=== PATIENT | female | born 1945 | race African-American/Black ===

== ENCOUNTER 2019-02-10 14:42 | Emergency (ER) | payer MEDICARE, BC ==
[~2019-02-10] VITALS: Ht 162.6 cm; Wt 96.0 kg
[2019-02-10] MEDS ORDERED: ACETAMINOPHEN WITH CODEINE 300/30MG TABLET PO ONE (17:15)
[2019-02-10 17:28] VITALS: BP 137/60
[2019-02-10 18:04] LABS: BASOPHILS % 0.8 % (0.0-2.0); EOSINOPHILS % 2.7 % (0.0-5.0); HEMATOCRIT. 39.4 % (36.0-48.0); LYMPHOCYTES % 41.1 % (20.0-50.0); MEAN CORPUSCULAR HEMOGLOBIN 29.8 pg (28.0-32.0); MEAN CORPUSCULAR VOLUME 90.6 fL (81.0-99.0); MEAN PLATELET VOLUME 7.4 fl (7.4-10.4); MONOCYTES % 8.6 % (2.0-8.0); NEUTROPHILS % 46.8 % (40.0-76.0); PLATELET 194 x1000/uL (130-400); RED BLOOD CELL COUNT 4.35 mill/uL (4.2-5.4); RED CELL DISTRIBUTION WIDTH 13.8 % (11.6-14.6)
[2019-02-10 18:09] LABS: CHLORIDE 108 mEq/L (98-107)
[2019-02-10 18:18] LABS: CREATINE KINASE 97 IU/L (26-192)
== END 2019-02-10 19:04 | disposition home or self-care (01) ==
LOC: ER 14:42
DX: R52 Pain, unspecified (principal); I11.0 Hypertensive heart disease with heart failure; I50.9 Heart failure, unspecified
CPT/HCPCS: 36415; 80048; 82550; 99283